=== PATIENT | female | born 1990 | race Caucasian/White ===

== ENCOUNTER → 2020-02-21 15:28 | Outpatient (CLI) | payer MEDICAID, SELFPAY ==
--- NOTE | ~2020-02-21 | US_ITS ---
EXAMINATION: US pelvic complete w TV DATE: 02/21/2020 16:01 INDICATION: Encounter for routine checking of the IUD TECHNIQUE: Multiple transabdominal and endovaginal sonographic images of the pelvis were obtained. COMPARISON: None. FINDINGS: The uterus measures 5 x 3.9 x 5.4 cm. The endometrial complex measures 14 mm. The IUD is de finitely identified within the endometrial canal. The right ovary measures 3.1 x 2.2 x 2.0 cm. A line ar echogenic focus is seen in the right adnexa. The left ovary measures 6.4 x 4.5 x 5.4 cm and contai ns a 5.5 cm cyst. There is normal vascular flow in the ovaries. There is a small amount of free fluid in the pelvis. IMPRESSION: 1. IUD not seen within the endometrial canal. Linear echogenic focus of the right adnexa could reflec t PID. Pelvic radiograph is recommended Reviewed, dictated and finalized at location B. IMPRESSION: 1. IUD not seen within the endometrial canal. Linear echogenic focus of the rig ht adnexa could reflect PID. Pelvic radiograph is recommended
== END ==
PROVIDERS: Visit Provider Obstetrics & Gynecology
DX: Z30.431 Encounter for routine checking of intrauterine contraceptive device (principal)
CPT/HCPCS: 72170; 76830; 76856

== ENCOUNTER → 2020-02-21 16:33 | Outpatient (CLI) | payer MEDICAID, SELFPAY ==
--- NOTE | ~2020-02-21 | XR_ITS ---
XR pelvis 1-2V DATE: 02/21/2020 16:48 INDICATION: IUD placement TECHNIQUE: AP view COMPARISON: None FINDINGS: No IUD is identified. 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 The sacroiliac joints are intact. No evidence of bowel obstruction. The psoas shadows are preserved. IMPRESSION: No IUD is identified Transitional lumbosacral vertebra Reviewed, dictated and finalized at location A.
== END ==
PROVIDERS: Visit Provider Obstetrics & Gynecology
DX: Z30.430 Encounter for insertion of intrauterine contraceptive device (principal)
CPT/HCPCS: 72170

== ENCOUNTER → 2020-04-18 14:59 | Outpatient (CLI) | payer MEDICAID, SELFPAY ==
--- NOTE | ~2020-04-18 | CT_ITS ---
EXAMINATION: CT abdomen pelvis w con DATE: 04/18/2020 15:21 INDICATION: Right lower quadrant pain. Evaluate IUD. TECHNIQUE: Computed tomography (CT) of the abdomen and pelvis was performed with 100 mL Omnipaque-350 intravenous contrast. Automated exposure control and iterative reconstruction technique were employe d. The dose-length product was 556.41 mGy-cm. COMPARISON: None FINDINGS: Lung bases are clear. Heart size is normal. No pericardial or pleural effusion. Liver, gallbladder, s pleen, pancreas, bilateral adrenal glands and kidneys are normal. Bowels including the appendix are n ormal. Bladder and uterus are normal. IUD is not identified in the abdomen or pelvis. 2.7 cm cyst sal turner dominant follicle in the right ovary with a few additional tiny follicles in both ovaries. Small amount of likely physiologic free fluid situated between the uterus and right ovary. Bones are unrema rkable. IMPRESSION: 1. No IUD identified in the abdomen or pelvis. 2. 2.7 cm cyst versus dominant follicle at the right ovary with small amount of likely physiologic fr ee fluid in the pelvis. No other acute intra-abdominal/pelvic process. Reviewed, dictated and finalized at location A. [employer] IMPRESSION: 1. No IUD identified in the abdomen or pelvis. 2. 2.7 cm cyst versus dominant follicle at the right ovary with small amount of likely physiologic free fluid in the pelvis. No other acute intra-abdominal/pe lvic process.
== END ==
PROVIDERS: PCP Obstetrics & Gynecology; Visit Provider Obstetrics & Gynecology
DX: Z30.431 Encounter for routine checking of intrauterine contraceptive device (principal)
CPT/HCPCS: 74177; Q9967